=== PATIENT | male | born 1975 ===

== ENCOUNTER → 2024-03-08 | Day surgery (SDC) | payer BC ==
[2024-03-06 11:38] VITALS: BMI 35.2
[~2024-03-08] MED LIST: PROPOFOL 10 MG/ML 20 ML VIAL IV ONE
[2024-03-08] MEDS: LACTATED RINGERS 1,000 ML IV SCH (14:12)
[2024-03-08 15:01] VITALS: RESP 16; TEMP 97.4
--- NOTE | 2024-03-08 15:53 | P.PCN ---
Date of Procedure: 03/08/24 Procedure(s) Performed: BRIEF HISTORY: Patient is a 48-year-old pleasant white male scheduled for an elective colonoscopy as a part of screening for colon cancer. PROCEDURE PERFORMED: Colonoscopy with snare polypectomy. PREOPERATIVE DIAGNOSIS: Screening for colon cancer. IV sedation per Anesthesia. PROCEDURE: After informed consent was obtained, the patient, was brought into the endoscopy unit. IV sedation was administered by Anesthesia under continuous monitoring. Digital rectal examination was normal. Initially the Olympus CF-160 flexible video colonoscope was then inserted in the rectum, gradually advanced into the cecum without any difficulty. Careful examination was performed as the scope was gradually being withdrawn. Ileocecal valve and the appendiceal orifice were visualized and appeared normal. Prep was excellent. Mucosa of the cecum, ascending colon, transverse colon, descending colon,appeared normal. In the proximal sigmoid there was a 5 mm polyp that was removed by cold snare polypectomy. In the rectum there was a 5 mm polyp that was removed by snare polypectomy. Retroflexion was performed in the rectum and no lesions were seen. The patient tolerated the procedure well. IMPRESSION: 8 mm sigmoid: Polyp status post cold snare polypectomy 6 mm rectal polyp status post polypectomy rest of the colon appeared normal. RECOMMENDATIONS: Findings of this examination were discussed with the patient as well as his family. He was advised to Follow with the biopsy results. If the biopsy reveals adenoma he can have a repeat colonoscopy in 5 years.
[2024-03-08 16:21] VITALS: BP 122/88; PULSE 87
== END ==
LOC: ORWHC2ENDO 13:16
PROVIDERS: ATTEND Internal Medicine Gastroenterology
DX: Z12.11 Encounter for screening for malignant neoplasm of colon (principal); D12.5 Benign neoplasm of sigmoid colon; D12.8 Benign neoplasm of rectum; I10 Essential (primary) hypertension; K76.0 Fatty (change of) liver, not elsewhere classified; Z79.899 Other long term (current) drug therapy
CPT/HCPCS: 88305; 45385; J2704